=== PATIENT | male | born 1975 | race Caucasian/White ===

== ENCOUNTER → 2018-06-02 | Outpatient (CLI) | payer BC ==
--- NOTE | 2018-06-02 14:36 | RADRPT ---
PROCEDURE: XR Right hip and pelvis. CLINICAL INDICATION: Right hip pain and pelvic pain. TECHNIQUE: 3 views. Frontal pelvis. Frontal and lateral right hip. COMPARISON: None. FINDINGS: There is no fracture or dislocation. The soft tissues are normal. Articular surfaces are intact. There is no lytic or blastic lesion. There is no radiopaque foreign body. IMPRESSION: 1. Unremarkable images of the right hip. 2. Unremarkable frontal view of the pelvis. RPTAT: QQ .Tyler Fernandez MD, Date Time Electronically viewed and signed by .Tyler Frenandez MD, on 06/02/2018 14:35 .R/
--- NOTE | 2018-06-02 16:27 | CONS ---
Assessment/Plan Assessment/Plan Hospital Course (Demo Recall) 43-year-old male presenting with year to year and a half of right buttock pain. This may be result of lumbar radiculopathy. However he could have a chronic hamstring tinnitus or ischial tuberosity bursitis. Rest does significantly help him. He did rest for 3 months but as soon as he started training again the symptoms returned. At this time an MRI of the pelvis would be helpful in further evaluation and management. He will return after the MRI of his pelvis is completed. At that time most like we will start an anti-inflammatory regiment and physical therapy. 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 He is complaining of pain in his right buttock for approximately a year and a half. The pain developed over time. There is no specific injury. The pain is rated 5/10 and is described as stabbing and dull. He does have occasional numbness and tingling in his legs down to his feet. He does have a history of back problems. He does have symptoms while sleeping at night. Training, running, impact activity increases his pain. Rest alleviates his pain he has not done formal physical therapy but has done stretching and other therapy exercise. He does use ice. He also does get massages. His walking tolerance is not limited. He does admit to a limp. Denies use of gait aids. Patient denies fever, chills, shortness of breath, chest pain, nausea/vomiting, constipation, diarrhea, numbness, and tingling. Past Medical History None Past Surgical History Right elbow surgery Family History Significant Family History: no pertinent family hx Social History Alcohol Use: none Smoking Status: Never smoker Drug Use: none Exam/Review of Systems Exam Vitals Weight: 170 pounds Height: 5 foot 11 inches Temperature: 90.4 Heart Rate: 49 Blood Pressure: 117/69 Respiratory Rate: 12 - Exam General: Alert, oriented. Vital signs: Noted on the chart. Heart: Regular rate and rhythm. Lungs: No respiratory distress. No accessory muscle use. Musculoskeletal: Well developed male in no apparent distress. Gait demonstrates a non antalgic components and no short leg component. Standing, the pelvis is level and supine there is no true leg length discrepancy. There is tenderness over ischial tuberosity. Negative Obers Test Range of motion: Flexion: 140 Extension: 0 Internal rotation: 30 External rotation: 45 Abduction: 60 Adduction: 10 Sitting there is no pelvic obliquity. Minimal to no pain at the extremes of motion of the affected hip. Skin was intact throughout both lower extremities. Sensation intact to light touch in a sural, saphenous, deep peroneal, superficial peroneal, medial and lateral plantar nerve distribution. Neurovascular exam showed 5/5 strength in the abductors, quads, EHL/tibialis anterior/gastroc. Normal and symmetrical pulses were palpated in both the dorsalis pedis and posterior tibial arteries. There is no sign of venous stasis. Imaging Imaging The patient received a full set of films and personally reviewed by myself today in clinic including an AP pelvis and an AP and lateral of the affected hip. The hip is reduced. There is significant degenerative disc disease of the lumbar spine. Evaluation of the lumbar spine is limited. There is no significant loss of joint space. There is no osteophyte formation. There is no subchondral sclerosis. There are no subchondral cysts. There is no significant deformity of the the proximal femur, femoral neck, or acetabulum. The pelvis is in continuity. Bone quality radiographically: KYRA Tompkins MD Jun 02, 2018 16:27
== END | disposition home or self-care (01) ==
LOC: HKI 14:41
PROVIDERS: ATTEND Orthopaedic Surgery Adult Reconstructive Orthopaedic Surgery
DX: M54.16 Radiculopathy, lumbar region (principal)
CPT/HCPCS: 73502; G0463